=== PATIENT | female | born 1990 | race Caucasian/White ===

== ENCOUNTER 2019-02-17 18:36 | Emergency (ER) | payer MEDICAID, OTHER ==
[~2019-02-17] VITALS: Ht 165.1 cm; Wt 65.9 kg
[2019-02-17 19:34] LABS: BASOPHILS % (AUTO) 0.6 % (0-1); EOSINOPHILS # (AUTO) 0.1 X10'3 (0-0.9); EOSINOPHILS % (AUTO) 0.7 % (0-6); HEMATOCRIT 36.3 % (35.0-45.0); HEMOGLOBIN 12.4 g/dl (12.0-16.0); LYMPHOCYTES % (AUTO) 26.8 % (21-51); MEAN CORPUSCULAR HEMOGLOBIN 30.1 PG (27.0-31.0); MEAN CORPUSCULAR HGB CONC 34.2 g/dL (33.0-36.5); MEAN PLATELET VOLUME 10.5 FL (7.4-10.4); MONOCYTES # (AUTO) 0.7 X10'3 (0-0.9); NEUTROPHILS # (AUTO) 4.6 X10'3 (1.8-7.7); NEUTROPHILS % (AUTO) 62.9 % (42-75); PLATELET COUNT 160 X10'3 (140-440); RED BLOOD COUNT 4.13 X10'6 (4.20-5.60); RED CELL DISTRIBUTION WIDTH 13.6 % (11.5-14.5); WHITE BLOOD COUNT 7.4 X10'3 (4.5-11.0)
[2019-02-17 20:14] VITALS: BP 115/75
== END 2019-02-17 20:16 | disposition home or self-care (01) ==
LOC: ER 18:37
DX: K62.5 Hemorrhage of anus and rectum (principal); Z98.890 Other specified postprocedural states
CPT/HCPCS: 36415; 85025; 99283

== ENCOUNTER 2019-09-08 18:29 | Emergency (ER) | payer MEDICAID ==
[~2019-09-08] VITALS: Ht 160 cm; Wt 70.5 kg
[2019-09-08 18:41] VITALS: BP 127/83
[2019-09-08] MEDS ORDERED: IBUP-1984 PO (19:28)
[2019-09-08] MEDS ORDERED: PENI500T2 PO (19:28)
== END 2019-09-08 19:38 | disposition home or self-care (01) ==
LOC: ER 18:29
DX: K04.7 Periapical abscess without sinus (principal); K02.9 Dental caries, unspecified; F10.99 Alcohol use, unspecified with unspecified alcohol-induced disorder; Z98.890 Other specified postprocedural states; Z79.899 Other long term (current) drug therapy; Y90.9 Presence of alcohol in blood, level not specified
CPT/HCPCS: 99283

== ENCOUNTER 2022-09-16 23:29 | Emergency (ER) | payer MEDICAID ==
[~2022-09-16] VITALS: Ht 165.1 cm; Wt 72.7 kg
[2022-09-17] MEDS ORDERED: TETanus/Pertussis (Acell)/Diphther VAC/PF (Tdap-Adult) 0.5ml syringe IMVAC ONE (01:15)
[2022-09-17] MEDS ORDERED: LIDOcaine/epinephrine/tetracaine TOPICAL sol 3 ML syringe TOP ONE (01:15)
[2022-09-17] MEDS ORDERED: NO HOME MEDS (01:31)
[2022-09-17 01:41] LABS: URINE HCG NEGATIVE (NEG)
[2022-09-17 01:44] LABS: BASOPHILS % (AUTO) 0.5 % (0-1); EOSINOPHILS % (AUTO) 0.3 % (0-6); HEMATOCRIT 43.5 % (35.0-45.0); HEMOGLOBIN 14.8 g/dl (12.0-16.0); LYMPHOCYTES # (AUTO) 1.9 X10'3 (1.1-4.8); LYMPHOCYTES % (AUTO) 17.3 % (21-51); MEAN CORPUSCULAR HEMOGLOBIN 31.3 PG (27.0-31.0); MEAN CORPUSCULAR HGB CONC 33.9 g/dL (33.0-36.5); MEAN CORPUSCULAR VOLUME 92.2 FL (78-98); MEAN PLATELET VOLUME 9.5 FL (7.4-10.4); MONOCYTES # (AUTO) 0.9 X10'3 (0-0.9); MONOCYTES % (AUTO) 8.3 % (2-12); NEUTROPHILS % (AUTO) 73.6 % (42-75); PLATELET COUNT 252 X10'3 (140-440); RED BLOOD COUNT 4.71 X10'6 (4.20-5.60); WHITE BLOOD COUNT 10.9 X10'3 (4.5-11.0)
[2022-09-17 01:55] LABS: ALANINE AMINOTRANSFERASE 59 U/L (12-78); ALBUMIN 3.2 G/DL (3.4-5.0); ALBUMIN/GLOBULIN RATIO 0.8 (1.1-1.5); ALKALINE PHOSPHATASE 163 IU/L (46-116); ANION GAP 13 (8-16); ASPARTATE AMINO TRANSFERASE 48 U/L (10-37); BILIRUBIN,TOTAL 0.3 MG/DL (0.1-1.0); BLOOD UREA NITROGEN 6 MG/DL (7-18); BUN/CREATININE RATIO 12.5 (6.6-38.0); CALCIUM 8.4 MG/DL (8.5-10.1); CHLORIDE 106 MMOL/L (99-107); CREATININE 0.48 MG/DL (0.40-0.90); ETHANOL 0.082 GM/DL (0.0-0.010); GLUCOSE 92 MG/DL (70-104); POTASSIUM 3.2 MMOL/L (3.5-5.1); SODIUM 140 MMOL/L (135-145); TOTAL CARBON DIOXIDE 20.6 MMOL/L (24-32); TOTAL PROTEIN 7.3 G/DL (6.4-8.2); eGFR > 90 ML/MIN
[2022-09-17 01:58] LABS: URINE AMPHETAMINE SCREEN NEGATIVE (Neg); URINE BARBITUATE SCREEN NEGATIVE (Neg); URINE BENZODIAZEPINES SCREEN NEGATIVE (Neg); URINE CANNABINOID SCREEN POSITIVE (Neg); URINE COCAINE SCREEN NEGATIVE (Neg); URINE METHADONE SCREEN NEGATIVE (Neg); URINE OPIATE SCREEN NEGATIVE (Neg); URINE PHENCYCLIDINE SCREEN NEGATIVE (Neg)
[2022-09-17 01:58] LABS: ACETAMINOPHEN < 2.0 UG/ML (10-30)
[2022-09-17 05:54] VITALS: BP 118/79
--- NOTE | 2022-09-17 07:02 | NUR ---
REPORT FROM DEBBIE FOR CONTINUATION OF CARE. PT SLEEPING IN POSITION OF COMFORT. EVEN RISE AND FALL OF CHEST. ROOM HAS BEEN CLEARED OF OBJECTS OF HARM. PT WITHIN EYE SIGHT OF MD STATION WITH DOORS OPEN FOR CONSTANT OBSERVATION AND SAFETY.
--- NOTE | 2022-09-17 09:12 | NUR ---
Met with patient in regards to alcohol use to see if patient was interested in resource options. Patient is interested in outpatient treatment options. I talked to patient about medication assisted treatment and about getting a sponsor. Patient is familiar with inpatient rehab and has a sponsor already. Patient is going to contact her when she gets out of the hospital and contact [facility] for naltrexone. I gave patient my card to call me with any questions.
--- NOTE | 2022-09-17 09:29 | NUR ---
pt woke and is now talking to psych. pt is calm cooperative with no si or hi reported. pt given tray and ate. resp even unlabored. skin w/d/i pink. pending dc
== END 2022-09-17 12:02 | disposition home or self-care (01) ==
LOC: ER 23:29
DX: S61.512A Laceration without foreign body of left wrist, initial encounter (principal); Z20.822 Contact with and (suspected) exposure to COVID-19; R46.89 Other symptoms and signs involving appearance and behavior; F43.20 Adjustment disorder, unspecified; Z85.9 Personal history of malignant neoplasm, unspecified; Z72.89 Other problems related to lifestyle; W45.8XXA Other foreign body or object entering through skin, initial encounter; Y93.89 Activity, other specified; Y92.89 Other specified places as the place of occurrence of the external cause; Y99.8 Other external cause status
CPT/HCPCS: 12002; 36415; 80053; 80305; 80320; 80329; 81025; 85025; 87811; 90471; 90715; 99285; J3490